=== PATIENT | male | born 1980 | race American Indian/Alaskan Native ===

== ENCOUNTER 2018-08-14 06:07 | Emergency (ER) | payer SELFPAY ==
[2018-08-14] MEDS ORDERED: Aspirin 81 MG Tab.Chew PO ONE (06:22)
[2018-08-14] MEDS ORDERED: Nitroglycerin 2% Oint 1 GM UD Packet TOP ONE (06:22)
[2018-08-14] MEDS ORDERED: Sodium Chloride 0.9% 2.5 ML Syringe FLUSH PRN (06:23)
[2018-08-14] MEDS ORDERED: Sodium Chloride 0.9% 10 ML Syringe FLUSH PRN (06:23)
--- NOTE | 2018-08-14 06:28 | EDM.PDOC ---
<Leslie Thapa - Last Filed: 08/14/18 07:04> ED HPI GENERAL MEDICAL PROBLEM - General Chief Complaint: Respiratory Problem Stated Complaint: SHORTNESS OF BREATH Time Seen by Provider: 08/14/18 06:18 - History of Present Illness INITIAL COMMENTS - FREE TEXT/NARRATIVE: HISTORY AND PHYSICAL: History of present illness: The patient is a 38-year-old male who presents with several weeks of an on again off again cough sometimes spastic and sometimes productive of phlegm and new shortness of breath over the last 1 week. He says that he does not have chest pain specifically but sometimes he feels like the cough and the shortness of breath or choking him and there is a pressure-like sensation with the shortness of breath. He's not had fevers chills and only recently has had some epigastric discomfort without vomiting or diarrhea. The patient does not have a local provider but says that in 2016 he had fluid in his lungs and was treated with 2 different antihypertensives and to diuretics and saw Dr. Snider in [place] as well as Dr. Gotti the pathology secretary. He says that at this time he had kidney trouble and had a follow with the pathology secretary and he did follow-up with Dr. Snider and he started having more hypotension and he was taken off of his blood pressure medications as well as his diuretics and he says he has not been very compliant with follow-ups since that time. When I asked him if he had an echocardiogram he says yes but he does not know the results and he is not sure why he had the heart failure and then subsequently was taken off all medications. On this ED visit he says he has not had any leg pain or swelling he has been eating and drinking normally and he has not had any fevers or chills. The patient says he does sleep on 2 pillows but sometimes has trouble and has to sit upright to sleep. The patient says that when he is at work and doing activities he feels more short of breath and this is new over the last 1 week as well. He came in this morning versus any other day because he felt like his symptoms would worsen at work today. Review of systems: As per history of present illness and below otherwise all systems reviewed and negative. Past medical history: As per history of present illness and as reviewed below otherwise noncontributory. Surgical history: As per history of present illness and as reviewed below otherwise noncontributory. Social history: No reported history of drug or alcohol abuse. Family history: As per history of present illness and as reviewed below otherwise noncontributory. Physical exam: General: Well-developed well-nourished man who is nontoxic and not breathless on my evaluation but seems a little anxious. He is tachycardic and other vitals are noted by me as well HEENT: Atraumatic, normocephalic, pupils reactive, negative for conjunctival pallor or scleral icterus, mucous membranes moist, throat clear, neck supple, nontender, trachea midline. Lungs: Clear to auscultation diminished breath sounds in the bases more on the left side but no stridor or wheezing and no abdominal work of breathing, breath sounds equal bilaterally, chest nontender. Heart: S1S2, regular rhythm and tachycardic rate of my evaluation but no overt murmurs. There is no evidence of JVD on my evaluation and when I laid the patient in the supine position he was not dyspneic Abdomen: Soft, nondistended, nontender. Negative for masses or hepatosplenomegaly. Negative for costovertebral tenderness. Pelvis: Stable nontender. Genitourinary: Deferred. Rectal: Deferred. Extremities: Atraumatic, negative for cords or calf pain. Neurovascular unremarkable. No pedal edema or leg asymmetry Neuro: Awake, alert, oriented. Cranial nerves II through XII unremarkable. Cerebellum unremarkable. Motor and sensory unremarkable throughout. Exam nonfocal. Diagnostics: EKG CBC CMP INR BNP troponin lipase UA chest x-ray Therapeutics: IV O2 monitor aspirin Nitropaste 7a: Case was endorsed to Dr. Ernst to follow-up testing results and disposition patient. Patient is currently stable here in the ED. Impression: Dyspnea acute on chronic Definitive disposition and diagnosis as appropriate pending reevaluation and review of above. epigastric Pain Score (Numeric/FACES): 9 - Related Data Allergies Allergy/AdvReac Type Severity Reaction Status Date / Time No Known Allergies Allergy Verified 08/14/18 06:16 Home Meds: Home Meds Furosemide [Lasix] 20 mg PO BID #20 tab 08/14/18 [Rx] Potassium Chloride [Klor-Con 10] 10 meq PO DAILY #20 tab.er 08/14/18 [Rx] Social & Family History - Tobacco Use Smoking Status *Q: Current Every Day Smoker Years of Tobacco use: 19 Packs/Tins Daily: 1 - Recreational Drug Use Recreational Drug Use: Yes Drug Use in Last 12 Months: Yes Recreational Drug Type: Reports: Marijuana/Hashish Recreational Drug Use Frequency: Socially ED ROS GENERAL - Review of Systems Review Of Systems: ROS reveals no pertinent complaints other than HPI. ED EXAM, GENERAL - Physical Exam Exam: See Below (See dictation) Course - Vital Signs Last Recorded V/S: Last Vital Signs Temp 96.7 F 08/14/18 06:07 Pulse 103 H 08/14/18 07:06 Resp 20 08/14/18 07:06 BP 110/81 08/14/18 07:06 Pulse Ox 100 08/14/18 07:06 - Orders/Labs/Meds Orders: Active Orders 24 hr Category Date Time Status Cardiac Monitoring [RC] . DIRECTED Care 08/14/18 06:09 Active EKG Documentation Completion [RC] STAT Care 08/14/18 06:09 Active Oxygen Therapy, ED [RC] ASDIRECTED Care 08/14/18 06:09 Active Pulse Oximetry [RC] ASDIRECTED Care 08/14/18 06:09 Active UA RFX GAMALIEL AND CULT IF INDIC [URIN] Stat Lab 08/14/18 06:23 Ordered Sodium Chloride 0.9% [Saline Flush] Med 08/14/18 06:23 Active 10 ml FLUSH ASDIRECTED PRN Sodium Chloride 0.9% [Saline Flush] Med 08/14/18 06:23 Active 2.5 ml FLUSH ASDIRECTED PRN Saline Lock Insert [OM.PC] Stat Oth 08/14/18 06:22 Ordered Medication Orders Sodium Chloride (Saline Flush) 10 ml FLUSH ASDIRECTED PRN PRN Reason: Keep Vein Open Sodium Chloride (Saline Flush) 2.5 ml FLUSH ASDIRECTED PRN PRN Reason: Keep Vein Open Labs: Laboratory Tests 08/14/18 08/14/18 08/14/18 Range/Units 06:20 06:20 06:20 WBC 11.28 H (4.0-11.0) K/uL RBC 4.53 (4.50-5.90) M/uL Hgb 13.5 (13.0-17.0) g/dL Hct 41.1 (38.0-50.0) % MCV 90.7 (80.0-98.0) fL MCH 29.8 (27.0-32.0) pg MCHC 32.8 (31.0-37.0) g/dL RDW Std Deviation 44.9 (28.0-62.0) fl RDW Coeff of Pauline 14 (11.0-15.0) % Plt Count 321 (150-400) K/uL MPV 9.20 (7.40-12.00) fL Neut % (Auto) 56.4 (48.0-80.0) % Lymph % (Auto) 34.5 (16.0-40.0) % [place] % (Auto) 8.2 (0.0-15.0) % Eos % (Auto) 0.5 (0.0-7.0) % Baso % (Auto) 0.4 (0.0-1.5) % Neut # (Auto) 6.4 H (1.4-5.7) K/uL Lymph # (Auto) 3.9 H (0.6-2.4) K/uL [place] # (Auto) 0.9 H (0.0-0.8) K/uL Eos # (Auto) 0.1 (0.0-0.7) K/uL Baso # (Auto) 0.0 (0.0-0.1) K/uL Nucleated RBC % 0.0 /100WBC Nucleated RBCs # 0 K/uL INR 1.17 Sodium 139 (136-148) mmol/L Potassium 4.6 (3.5-5.1) mmol/L Chloride 107 (98-107) mmol/L Carbon Dioxide 22.2 (21.0-32.0) mmol/L BUN 21 H (7.0-18.0) mg/dL Creatinine 1.2 (0.8-1.3) mg/dL Est Cr Clr Drug Dosing 85.34 mL/min Estimated GFR (MDRD) > 60.0 ml/min Glucose 125 H (74-106) mg/dL Calcium 8.3 L (8.5-10.1) mg/dL Total Bilirubin 0.9 (0.2-1.0) mg/dL AST 35 (15-37) IU/L ALT 50 (14-63) IU/L Alkaline Phosphatase 110 (46-116) U/L Troponin I < 0.050 (0.000-0.056) ng/mL B-Natriuretic Peptide (<100) PG/ML Total Protein 6.9 (6.4-8.2) g/dL Albumin 3.5 (3.4-5.0) g/dL Globulin 3.4 (2.6-4.0) g/dL Albumin/Globulin Ratio 1.0 (0.9-1.6) Lipase 85 (73-393) U/L 08/14/18 Range/Units 06:20 WBC (4.0-11.0) K/uL RBC (4.50-5.90) M/uL Hgb (13.0-17.0) g/dL Hct (38.0-50.0) % MCV (80.0-98.0) fL MCH (27.0-32.0) pg MCHC (31.0-37.0) g/dL RDW Std Deviation (28.0-62.0) fl RDW Coeff of Pauline (11.0-15.0) % Plt Count (150-400) K/uL MPV (7.40-12.00) fL Neut % (Auto) (48.0-80.0) % Lymph % (Auto) (16.0-40.0) % [place] % (Auto) (0.0-15.0) % Eos % (Auto) (0.0-7.0) % Baso % (Auto) (0.0-1.5) % Neut # (Auto) (1.4-5.7) K/uL Lymph # (Auto) (0.6-2.4) K/uL [place] # (Auto) (0.0-0.8) K/uL Eos # (Auto) (0.0-0.7) K/uL Baso # (Auto) (0.0-0.1) K/uL Nucleated RBC % /100WBC Nucleated RBCs # K/uL INR Sodium (136-148) mmol/L Potassium (3.5-5.1) mmol/L Chloride (98-107) mmol/L Carbon Dioxide (21.0-32.0) mmol/L BUN (7.0-18.0) mg/dL Creatinine (0.8-1.3) mg/dL Est Cr Clr Drug Dosing mL/min Estimated GFR (MDRD) ml/min Glucose (74-106) mg/dL Calcium (8.5-10.1) mg/dL Total Bilirubin (0.2-1.0) mg/dL AST (15-37) IU/L ALT (14-63) IU/L Alkaline Phosphatase (46-116) U/L Troponin I (0.000-0.056) ng/mL B-Natriuretic Peptide 879 H (<100) PG/ML Total Protein (6.4-8.2) g/dL Albumin (3.4-5.0) g/dL Globulin (2.6-4.0) g/dL Albumin/Globulin Ratio (0.9-1.6) Lipase (73-393) U/L Meds: Medications Generic Name Dose Route Start Last Admin Trade Name Freq PRN Reason Stop Dose Admin Sodium Chloride 10 ml 08/14/18 06:23 Saline Flush FLUSH ASDIRECTED PRN Keep Vein Open Sodium Chloride 2.5 ml 08/14/18 06:23 Saline Flush FLUSH ASDIRECTED PRN Keep Vein Open Discontinued Medications Generic Name Dose Route Start Last Admin Trade Name Freq PRN Reason Stop Dose Admin Aspirin 324 mg 08/14/18 06:22 08/14/18 06:44 Aspirin PO 08/14/18 06:23 324 mg ONETIME ONE Administration Nitroglycerin 0.5 gm 08/14/18 06:22 08/14/18 06:47 Nitro-Bid 2% TOP 08/14/18 06:23 0.5 gm ONETIME ONE Administration Departure - Departure Disposition: Home, Self-Care 01 Clinical Impression: CHF (congestive heart failure) Qualifiers: Heart failure type: other Qualified Code(s): I50.9 - Heart failure, unspecified - Discharge Information Prescriptions: Furosemide [Lasix] 20 mg PO BID #20 tab Potassium Chloride [Klor-Con 10] 10 meq PO DAILY #20 tab.er Forms: ED Department Discharge Additional Instructions: The following information is given to patients seen in the emergency department who are being discharged to home. This information is to outline your options for follow-up care. We provide all patients seen in our emergency department with a follow-up referral. The need for follow-up, as well as the timing and circumstances, are variable depending upon the specifics of your emergency department visit. If you don't have a primary care physician on staff, we will provide you with a referral. We always advise you to contact your personal physician following an emergency department visit to inform them of the circumstance of the visit and for follow-up with them and/or the need for any referrals to a consulting specialist. The emergency department will also refer you to a specialist when appropriate. This referral assures that you have the opportunity for follow-up care with a specialist. All of these measure are taken in an effort to provide you with optimal care, which includes your follow-up. Under all circumstances we always encourage you to contact your private physician who remains a resource for coordinating your care. When calling for follow-up care, please make the office aware that this follow-up is from your recent emergency room visit. If for any reason you are refused follow-up, please contact the [facility] Emergency Department at and asked to speak to the emergency department charge nurse. Take meds as directed, follow up with your primary care physician, return to ER if symptoms worsen or change. [facility] [address] [place] [address] <Narcisa Ernst - Last Filed: 08/14/18 07:43> Departure - Departure Time of Disposition: 07:42 Condition: Good - Discharge Information *PRESCRIPTION DRUG MONITORING PROGRAM REVIEWED*: No *COPY OF PRESCRIPTION DRUG MONITORING REPORT IN PATIENT LILI: No
--- NOTE | 2018-08-14 06:53 | CR ---
INDICATION: Chest pain TECHNIQUE: Chest 1 view COMPARISON: None FINDINGS: Cardiovascular and mediastinum: Mild cardiomegaly with normal pulmonary vasculature. Lungs and pleural spaces: Lungs are clear. No sign of infiltrate or mass. No sign of pleural effusion. No pneumothorax. Bones and soft tissues: No significant findings. IMPRESSION: Mild cardiomegaly without acute pulmonary consolidation. Dictated by Theo Winn MD @ Aug 14 2018 6:50AM Signed by Dr. Theo Winn @ Aug 14 2018 6:51AM
[2018-08-14 06:58] LABS: CHLORIDE,CL 107 mmol/L (98-107); SODIUM,NA 139 mmol/L (136-148)
== END 2018-08-14 07:45 | disposition home or self-care (01) ==
LOC: MW.ED 06:07
DX: I50.9 Heart failure, unspecified (principal); F17.210 Nicotine dependence, cigarettes, uncomplicated; Z79.899 Other long term (current) drug therapy
CPT/HCPCS: 71045; 80053; 83690; 83880; 84484; 85025; 85610; 93005; 99285; A9270

== ENCOUNTER 2018-08-24 20:56 | Observation (INO) | payer OTHER ==
[2018-08-24] MEDS ORDERED: Sodium Chloride 0.9% 10 ML Syringe FLUSH PRN (21:07)
[2018-08-24] MEDS: Sodium Chloride 0.9% 2.5 ML Syringe FLUSH PRN (21:22)
--- NOTE | 2018-08-24 21:24 | EDM.PDOC ---
<Haven Mac R - Last Filed: 08/24/18 22:01> ED HPI GENERAL MEDICAL PROBLEM - General Chief Complaint: Cardiovascular Problem Stated Complaint: TROUBLE BREATHING Time Seen by Provider: 08/24/18 21:05 Source of Information: Reports: Patient History Limitations: Reports: No Limitations - History of Present Illness INITIAL COMMENTS - FREE TEXT/NARRATIVE: Reporting that he has noticed increased shortness of breath particularly with activity and almost choking sensation in his throat and sweating. He has a history of CHF. He was seen here a couple weeks ago was given a dose of Lasix and sent home--he has not followed up. He also noted that he has not been "Peeing much". Denies any fever, chest pain, abdominal pain, itchy skin or swelling in his lower legs ankles or feet. He reports he must sleep either on his right side or sitting up. He states that he checks his blood pressure regularly at home and it has been running in the 120s systolic and between 80 and the mid 90s diastolic. He has family history of CHF. He also was a regular methamphetamine user for many years. He states that he quit a couple of years ago. He has seen Dr. Snider in cardiology and doctor Goncalves in nephrology in the past. He states he had been on some different medications but then was taken off of all of his medications. no pain Pain Score (Numeric/FACES): 0 - Related Data Allergies Allergy/AdvReac Type Severity Reaction Status Date / Time No Known Allergies Allergy Verified 08/24/18 21:00 Home Meds: Home Meds Furosemide [Lasix] 20 mg PO BID #20 tab 08/14/18 [Rx] Potassium Chloride [Klor-Con 10] 10 meq PO DAILY #20 tab.er 08/14/18 [Rx] Past Medical History HEENT History: Reports: None Cardiovascular History: Reports: Heart Failure Respiratory History: Reports: None Gastrointestinal History: Reports: None Genitourinary History: Reports: None Musculoskeletal History: Reports: None Neurological History: Reports: None Psychiatric History: Reports: None Endocrine/Metabolic History: Reports: None Hematologic History: Reports: None Oncologic (Cancer) History: Reports: None Dermatologic History: Reports: None - Infectious Disease History Infectious Disease History: Reports: Chicken Pox Social & Family History - Family History Family Medical History: Noncontributory - Tobacco Use Smoking Status *Q: Former Smoker Used Tobacco, but Quit: Yes Month/Year Tobacco Last Used: 2017 - Caffeine Use Caffeine Use: Reports: Energy Drinks, Soda - Recreational Drug Use Recreational Drug Use: Yes Recreational Drug Type: Reports: Marijuana/Hashish ED ROS GENERAL - Review of Systems Review Of Systems: ROS reveals no pertinent complaints other than HPI. ED EXAM, GENERAL - Physical Exam Exam: See Below Exam Limited By: No Limitations General Appearance: Alert, Mild Distress (Due to shortness of breath) Ears: Normal External Exam Nose: Normal Inspection Throat/Mouth: Normal Inspection Head: Atraumatic, Normocephalic Neck: Normal Inspection Respiratory/Chest: Lungs Clear, Normal Breath Sounds, Other (Tachypnea, mild increased work of breathing) Cardiovascular: Normal Peripheral Pulses, Regular Rate, Rhythm, No Edema, No Murmur GI/Abdominal: Soft, No Distention Back Exam: Normal Inspection Extremities: Normal Inspection Neurological: Alert, Oriented, No Motor/Sensory Deficits Psychiatric: Normal Affect, Normal Mood Skin Exam: Warm, Dry, Intact, Normal Color, No Rash Lymphatic: No Adenopathy Course - Vital Signs Last Recorded V/S: Last Vital Signs Temp 35.6 C 08/24/18 21:00 Pulse 109 H 08/24/18 22:59 Resp 20 08/24/18 22:59 BP 117/59 L 08/24/18 22:59 Pulse Ox 97 08/24/18 22:59 - Orders/Labs/Meds Orders: Active Orders 24 hr Category Date Time Status Patient Status [ADT] Stat ADT 08/24/18 23:08 Active Cardiac Monitoring [RC] . DIRECTED Care 08/24/18 21:07 Active EKG Documentation Completion [RC] STAT Care 08/24/18 21:07 Active Oxygen Therapy, ED [RC] ASDIRECTED Care 08/24/18 21:07 Active Sodium Chloride 0.9% [Saline Flush] Med 08/24/18 21:07 Active 10 ml FLUSH ASDIRECTED PRN Sodium Chloride 0.9% [Saline Flush] Med 08/24/18 21:07 Active 2.5 ml FLUSH ASDIRECTED PRN Saline Lock Insert [OM.PC] Stat Oth 08/24/18 21:07 Ordered Medication Orders Sodium Chloride (Saline Flush) 10 ml FLUSH ASDIRECTED PRN PRN Reason: Keep Vein Open Last Admin: 08/24/18 21:22 Dose: 10 ml Sodium Chloride (Saline Flush) 2.5 ml FLUSH ASDIRECTED PRN PRN Reason: Keep Vein Open Last Admin: 08/24/18 21:22 Dose: 2.5 ml Labs: Laboratory Tests 08/24/18 08/24/18 08/24/18 Range/Units 21:08 21:08 21:08 WBC 10.74 (4.0-11.0) K/uL RBC 4.76 (4.50-5.90) M/uL Hgb 14.1 (13.0-17.0) g/dL Hct 43.5 (38.0-50.0) % MCV 91.4 (80.0-98.0) fL MCH 29.6 (27.0-32.0) pg MCHC 32.4 (31.0-37.0) g/dL RDW Std Deviation 48.2 (28.0-62.0) fl RDW Coeff of Pauline 15 (11.0-15.0) % Plt Count 377 (150-400) K/uL MPV 9.30 (7.40-12.00) fL Neut % (Auto) 60.4 (48.0-80.0) % Lymph % (Auto) 31.7 (16.0-40.0) % [place] % (Auto) 6.2 (0.0-15.0) % Eos % (Auto) 1.0 (0.0-7.0) % Baso % (Auto) 0.7 (0.0-1.5) % Neut # (Auto) 6.5 H (1.4-5.7) K/uL Lymph # (Auto) 3.4 H (0.6-2.4) K/uL [place] # (Auto) 0.7 (0.0-0.8) K/uL Eos # (Auto) 0.1 (0.0-0.7) K/uL Baso # (Auto) 0.1 (0.0-0.1) K/uL Nucleated RBC % 0.0 /100WBC Nucleated RBCs # 0 K/uL INR 1.10 Sodium 137 (136-148) mmol/L Potassium 4.4 (3.5-5.1) mmol/L Chloride 104 (98-107) mmol/L Carbon Dioxide 24.3 (21.0-32.0) mmol/L BUN 22 H (7.0-18.0) mg/dL Creatinine 1.2 (0.8-1.3) mg/dL Est Cr Clr Drug Dosing 85.34 mL/min Estimated GFR (MDRD) > 60.0 ml/min Glucose 94 (74-106) mg/dL Calcium 8.4 L (8.5-10.1) mg/dL Total Bilirubin 1.0 (0.2-1.0) mg/dL AST 27 (15-37) IU/L ALT 39 (14-63) IU/L Alkaline Phosphatase 111 (46-116) U/L Troponin I < 0.050 (0.000-0.056) ng/mL B-Natriuretic Peptide (<100) PG/ML Total Protein 6.8 (6.4-8.2) g/dL Albumin 3.3 L (3.4-5.0) g/dL Globulin 3.5 (2.6-4.0) g/dL Albumin/Globulin Ratio 0.9 (0.9-1.6) 08/24/18 Range/Units 21:08 WBC (4.0-11.0) K/uL RBC (4.50-5.90) M/uL Hgb (13.0-17.0) g/dL Hct (38.0-50.0) % MCV (80.0-98.0) fL MCH (27.0-32.0) pg MCHC (31.0-37.0) g/dL RDW Std Deviation (28.0-62.0) fl RDW Coeff of Pauline (11.0-15.0) % Plt Count (150-400) K/uL MPV (7.40-12.00) fL Neut % (Auto) (48.0-80.0) % Lymph % (Auto) (16.0-40.0) % [place] % (Auto) (0.0-15.0) % Eos % (Auto) (0.0-7.0) % Baso % (Auto) (0.0-1.5) % Neut # (Auto) (1.4-5.7) K/uL Lymph # (Auto) (0.6-2.4) K/uL [place] # (Auto) (0.0-0.8) K/uL Eos # (Auto) (0.0-0.7) K/uL Baso # (Auto) (0.0-0.1) K/uL Nucleated RBC % /100WBC Nucleated RBCs # K/uL INR Sodium (136-148) mmol/L Potassium (3.5-5.1) mmol/L Chloride (98-107) mmol/L Carbon Dioxide (21.0-32.0) mmol/L BUN (7.0-18.0) mg/dL Creatinine (0.8-1.3) mg/dL Est Cr Clr Drug Dosing mL/min Estimated GFR (MDRD) ml/min Glucose (74-106) mg/dL Calcium (8.5-10.1) mg/dL Total Bilirubin (0.2-1.0) mg/dL AST (15-37) IU/L ALT (14-63) IU/L Alkaline Phosphatase (46-116) U/L Troponin I (0.000-0.056) ng/mL B-Natriuretic Peptide 889 H (<100) PG/ML Total Protein (6.4-8.2) g/dL Albumin (3.4-5.0) g/dL Globulin (2.6-4.0) g/dL Albumin/Globulin Ratio (0.9-1.6) Meds: Medications Generic Name Dose Route Start Last Admin Trade Name Freq PRN Reason Stop Dose Admin Sodium Chloride 10 ml 08/24/18 21:07 08/24/18 21:22 Saline Flush FLUSH 10 ml ASDIRECTED PRN Administration Keep Vein Open Sodium Chloride 2.5 ml 08/24/18 21:07 08/24/18 21:22 Saline Flush FLUSH 2.5 ml ASDIRECTED PRN Administration Keep Vein Open Discontinued Medications Generic Name Dose Route Start Last Admin Trade Name Freq PRN Reason Stop Dose Admin Furosemide 20 mg 08/24/18 23:06 Lasix IVPUSH 08/24/18 23:07 NOW ONE Departure - Departure Disposition: Refer to Observation Clinical Impression: CHF (congestive heart failure) Qualifiers: Heart failure type: other Qualified Code(s): I50.9 - Heart failure, unspecified Forms: ED Department Discharge - My Orders Last 24 Hours: My Active Orders 08/24/18 21:07 Cardiac Monitoring [RC] . DIRECTED EKG Documentation Completion [RC] STAT Oxygen Therapy, ED [RC] ASDIRECTED Sodium Chloride 0.9% [Saline Flush] 10 ml FLUSH ASDIRECTED PRN Sodium Chloride 0.9% [Saline Flush] 2.5 ml FLUSH ASDIRECTED PRN Saline Lock Insert [OM.PC] Stat 08/24/18 23:08 Patient Status [ADT] Stat - Assessment/Plan Last 24 Hours: My Active Orders 08/24/18 21:07 Cardiac Monitoring [RC] . DIRECTED EKG Documentation Completion [RC] STAT Oxygen Therapy, ED [RC] ASDIRECTED Sodium Chloride 0.9% [Saline Flush] 10 ml FLUSH ASDIRECTED PRN Sodium Chloride 0.9% [Saline Flush] 2.5 ml FLUSH ASDIRECTED PRN Saline Lock Insert [OM.PC] Stat 08/24/18 23:08 Patient Status [ADT] Stat <Kenneth Quiñonez - Last Filed: 08/24/18 23:11> Course - Vital Signs Text/Narrative:: Emergency department course is been unremarkable patient was given Lasix 20 mg IV I discussed case with hospitalist who graciously accepted the patient is admission for observation impression #1 congestive heart failure #2 medical noncompliance Departure - Departure Time of Disposition: 23:10 Condition: Good
[2018-08-24 21:43] LABS: CHLORIDE,CL 104 mmol/L (98-107); SODIUM,NA 137 mmol/L (136-148)
--- NOTE | 2018-08-24 21:46 | CR ---
INDICATION: Shortness of breath/CHF. TECHNIQUE: Single-view chest. COMPARISON: 08/14/2018. FINDINGS: Heart size appears prominent and stable. Lungs are free of infiltrate. No findings to suggest pulmonary edema. IMPRESSION: No significant infiltrate or pulmonary edema is seen. Dictated by Ilir Hilario MD @ 08/24/2018 9:44:49 PM Dictated by: Ilir Hilario MD @ 08/24/2018 21:45:09 (Electronically Signed)
[2018-08-24] MEDS ORDERED: Furosemide 40 MG/4 ML VIAL IVPUSH ONE (23:06)
[2018-08-25] MEDS ORDERED: Acetaminophen 325 MG Tab PO PRN (00:14)
[2018-08-25] MEDS ORDERED: oxyCODONE 5 MG Tab PO PRN (00:15)
[2018-08-25] MEDS ORDERED: Sodium Chloride 0.9% 2.5 ML Syringe FLUSH PRN (00:16)
[2018-08-25] MEDS ORDERED: Sodium Chloride 0.9% 10 ML Syringe FLUSH PRN (00:16)
[2018-08-25 06:05] LABS: CHLORIDE,CL 102 mmol/L (98-107); SODIUM,NA 136 mmol/L (136-148)
[2018-08-25] MEDS ORDERED: Furosemide 20 MG Tab PO SCH (08:00)
[2018-08-25] MEDS: Enoxaparin 30 MG/0.3 ML Syringe SUBCUT SCH (08:14)
[2018-08-25] MEDS ORDERED: Furosemide 20 MG/2 ML VIAL IVPUSH SCH ×2 (08:30→09:00)
[2018-08-25] MEDS: Potassium Chloride 10 MEQ Tab.ER PO SCH (09:16)
--- NOTE | 2018-08-25 10:03 | PCM.HP ---
<Jose uLis Chi - Last Filed: 08/25/18 10:10> H&P History of Present Illness - General Date of Service: 08/25/18 Admit Problem/Dx: Admission Diagnosis/Problem Admission Diagnosis/Problem Congestive heart failure - History of Present Illness Initial Comments - Free Text/Narative: 38 y/o male with history of HF and previous methamphetamine use. Had been seeing Dr. Snider, Cardiology, however, states that last time he saw him he was instructed to stop his medications. Patient states that for the past 1 week he has been feeling more short of breath and coughing. Worse when laying down. He uses two pillows at night. Has not been taking any medications. Denies chest pain, radiation to left arm or neck. Feeling more weak than usual. No nausea, vomiting. No abdominal pain, dysuria, diarrhea, blood in stool. Denies worsening lower extremity swelling. In the ER, he was found to be tachycardic, tachypneic with O2 sat of low 90's on RA. He was diuresed with lasix overnight. He still feels short of breath but improved. Troponin was negative. BNP of 800. Pending Echo results. no pain Pain Score (Numeric/FACES): 0 - Related Data Allergies/Adverse Reactions: Allergies Allergy/AdvReac Type Severity Reaction Status Date / Time No Known Allergies Allergy Verified 08/25/18 09:23 Home Medications: Home Meds Furosemide [Lasix] 20 mg PO BID #20 tab 08/14/18 [Rx] Potassium Chloride [Klor-Con 10] 10 meq PO DAILY #20 tab.er 08/14/18 [Rx] Past Medical History HEENT History: Reports: None Cardiovascular History: Reports: Heart Failure Respiratory History: Reports: None Gastrointestinal History: Reports: None Genitourinary History: Reports: None Musculoskeletal History: Reports: None Neurological History: Reports: None Psychiatric History: Reports: None Endocrine/Metabolic History: Reports: None Hematologic History: Reports: None Oncologic (Cancer) History: Reports: None Dermatologic History: Reports: None - Infectious Disease History Infectious Disease History: Reports: Chicken Pox - Past Surgical History Cardiovascular Surgical History: Reports: None Social & Family History - Family History Family Medical History: Noncontributory - Tobacco Use Smoking Status *Q: Former Smoker Used Tobacco, but Quit: Yes Month/Year Tobacco Last Used: 2 months ago Second Hand Smoke Exposure: Yes - Caffeine Use Caffeine Use: Reports: Energy Drinks - Recreational Drug Use Recreational Drug Use: Yes Drug Use in Last 12 Months: Yes Recreational Drug Type: Reports: Marijuana/Hashish Recreational Drug Use Frequency: Weekly H&P Review of Systems - Review of Systems: Review Of Systems: ROS reveals no pertinent complaints other than HPI. Exam - Exam Exam: See Below - Vital Signs Vital Signs: Last Vital Signs Temp 36.6 C 08/25/18 04:19 Pulse 90 08/25/18 04:19 Resp 18 08/25/18 04:19 BP 105/64 08/25/18 04:19 Pulse Ox 93 L 08/25/18 04:19 Weight: 103.464 kg - Exam General: Alert, Oriented, Cooperative HEENT: Conjunctiva Clear, Mucosa Moist & [place] Lungs: Clear to Auscultation, Normal Respiratory Effort. No: Crackles, Wheezing Cardiovascular: Regular Rate, Regular Rhythm GI/Abdominal Exam: Normal Bowel Sounds, Soft, Non-Tender Extremities: Normal Inspection, No Pedal Edema Skin: Warm, Dry - Patient Data Lab Results Last 24 hrs: Laboratory Results - last 24 hr 08/24/18 08/24/18 08/24/18 Range/Units 21:08 21:08 21:08 WBC 10.74 (4.0-11.0) K/uL RBC 4.76 (4.50-5.90) M/uL Hgb 14.1 (13.0-17.0) g/dL Hct 43.5 (38.0-50.0) % MCV 91.4 (80.0-98.0) fL MCH 29.6 (27.0-32.0) pg MCHC 32.4 (31.0-37.0) g/dL RDW Std Deviation 48.2 (28.0-62.0) fl RDW Coeff of Pauline 15 (11.0-15.0) % Plt Count 377 (150-400) K/uL MPV 9.30 (7.40-12.00) fL Neut % (Auto) 60.4 (48.0-80.0) % Lymph % (Auto) 31.7 (16.0-40.0) % [place] % (Auto) 6.2 (0.0-15.0) % Eos % (Auto) 1.0 (0.0-7.0) % Baso % (Auto) 0.7 (0.0-1.5) % Neut # (Auto) 6.5 H (1.4-5.7) K/uL Lymph # (Auto) 3.4 H (0.6-2.4) K/uL [place] # (Auto) 0.7 (0.0-0.8) K/uL Eos # (Auto) 0.1 (0.0-0.7) K/uL Baso # (Auto) 0.1 (0.0-0.1) K/uL Nucleated RBC % 0.0 /100WBC Nucleated RBCs # 0 K/uL INR 1.10 Sodium 137 (136-148) mmol/L Potassium 4.4 (3.5-5.1) mmol/L Chloride 104 (98-107) mmol/L Carbon Dioxide 24.3 (21.0-32.0) mmol/L BUN 22 H (7.0-18.0) mg/dL Creatinine 1.2 (0.8-1.3) mg/dL Est Cr Clr Drug Dosing 85.34 mL/min Estimated GFR (MDRD) > 60.0 ml/min Glucose 94 (74-106) mg/dL Calcium 8.4 L (8.5-10.1) mg/dL Total Bilirubin 1.0 (0.2-1.0) mg/dL AST 27 (15-37) IU/L ALT 39 (14-63) IU/L Alkaline Phosphatase 111 (46-116) U/L Troponin I < 0.050 (0.000-0.056) ng/mL B-Natriuretic Peptide (<100) PG/ML Total Protein 6.8 (6.4-8.2) g/dL Albumin 3.3 L (3.4-5.0) g/dL Globulin 3.5 (2.6-4.0) g/dL Albumin/Globulin Ratio 0.9 (0.9-1.6) 08/24/18 08/25/18 08/25/18 Range/Units 21:08 04:48 04:48 WBC 9.22 (4.0-11.0) K/uL RBC 4.61 (4.50-5.90) M/uL Hgb 13.6 (13.0-17.0) g/dL Hct 41.5 (38.0-50.0) % MCV 90.0 (80.0-98.0) fL MCH 29.5 (27.0-32.0) pg MCHC 32.8 (31.0-37.0) g/dL RDW Std Deviation 47.3 (28.0-62.0) fl RDW Coeff of Pauline 15 (11.0-15.0) % Plt Count 368 (150-400) K/uL MPV 9.50 (7.40-12.00) fL Neut % (Auto) 57.2 (48.0-80.0) % Lymph % (Auto) 35.2 (16.0-40.0) % [place] % (Auto) 6.0 (0.0-15.0) % Eos % (Auto) 0.8 (0.0-7.0) % Baso % (Auto) 0.8 (0.0-1.5) % Neut # (Auto) 5.3 (1.4-5.7) K/uL Lymph # (Auto) 3.3 H (0.6-2.4) K/uL [place] # (Auto) 0.6 (0.0-0.8) K/uL Eos # (Auto) 0.1 (0.0-0.7) K/uL Baso # (Auto) 0.1 (0.0-0.1) K/uL Nucleated RBC % 0.0 /100WBC Nucleated RBCs # 0 K/uL INR Sodium 136 (136-148) mmol/L Potassium 3.8 (3.5-5.1) mmol/L Chloride 102 (98-107) mmol/L Carbon Dioxide 21.5 (21.0-32.0) mmol/L BUN 23 H (7.0-18.0) mg/dL Creatinine 1.1 (0.8-1.3) mg/dL Est Cr Clr Drug Dosing 93.09 mL/min Estimated GFR (MDRD) > 60.0 ml/min Glucose 99 (74-106) mg/dL Calcium 8.4 L (8.5-10.1) mg/dL Total Bilirubin (0.2-1.0) mg/dL AST (15-37) IU/L ALT (14-63) IU/L Alkaline Phosphatase (46-116) U/L Troponin I (0.000-0.056) ng/mL B-Natriuretic Peptide 889 H (<100) PG/ML Total Protein (6.4-8.2) g/dL Albumin (3.4-5.0) g/dL Globulin (2.6-4.0) g/dL Albumin/Globulin Ratio (0.9-1.6) Result Diagrams: 08/25/18 04:48 08/25/18 04:48 Problem List Initiated/Reviewed/Updated: Yes Orders Last 24hrs: Active Orders 24 hr Category Date Time Status Patient Status [ADT] Stat ADT 08/24/18 23:08 Active Cardiac Monitoring [RC] CONTINUOUS Care 08/25/18 07:01 Active Daily Weight [Height and Weight] [RC] DAILY Care 08/25/18 08:16 Active Intake and Output Strict [RC] ASDIRECTED Care 08/25/18 08:16 Active Oxygen Therapy [RC] PRN Care 08/25/18 07:00 Active Telemetry Monitoring [Cardiac Monitoring] [RC] Q8H Care 08/25/18 00:17 Active Up ad Emily [RC] ASDIRECTED Care 08/25/18 07:00 Active VTE/DVT Education [RC] PER UNIT ROUTINE Care 08/25/18 07:00 Active Vital Signs [RC] Q4H Care 08/25/18 07:00 Active Fluid Restriction [DIET] Diet 08/25/18 Breakfast Active Regular Diet [DIET] Diet 08/25/18 Breakfast Active Echo Comp wo Cont [US] Routine Exams 08/25/18 07:02 Taken CBC WITH AUTO DIFF [HEME] AM Lab 08/26/18 05:11 Ordered COMPREHENSIVE METABOLIC PN,CMP [CHEM] AM Lab 08/26/18 05:11 Ordered DRUG SCREEN, URINE [URCHEM] Routine Lab 08/25/18 08:21 Ordered Acetaminophen [Tylenol] Med 08/25/18 00:14 Active 650 mg PO Q6H PRN Enoxaparin [Lovenox] Med 08/25/18 07:00 Active 30 mg SUBCUT Q24H Furosemide [Lasix] Med 08/25/18 08:30 Active 20 mg IVPUSH Q6H Potassium Chloride [Klor-Con 10] Med 08/25/18 09:00 Active 10 meq PO DAILY Sodium Chloride 0.9% [Saline Flush] Med 08/24/18 21:07 Active 10 ml FLUSH ASDIRECTED PRN Sodium Chloride 0.9% [Saline Flush] Med 08/25/18 00:16 Active 10 ml FLUSH ASDIRECTED PRN Sodium Chloride 0.9% [Saline Flush] Med 08/24/18 21:07 Active 2.5 ml FLUSH ASDIRECTED PRN Sodium Chloride 0.9% [Saline Flush] Med 08/25/18 00:16 Active 2.5 ml FLUSH ASDIRECTED PRN oxyCODONE Med 08/25/18 00:15 Active 5 mg PO Q4H PRN Saline Lock Insert [OM.PC] Routine Oth 08/25/18 00:16 Ordered Saline Lock Insert [OM.PC] Stat Oth 08/24/18 21:07 Ordered Resuscitation Status Routine Resus Stat 08/25/18 07:00 Ordered Medication Orders Acetaminophen (Tylenol) 650 mg PO Q6H PRN PRN Reason: Pain Enoxaparin Sodium (Lovenox) 30 mg SUBCUT Q24H [facility] Last Admin: 08/25/18 08:14 Dose: 30 mg Furosemide (Lasix) 20 mg IVPUSH Q6H ASIF Stop: 08/26/18 02:31 Last Admin: 08/25/18 09:18 Dose: 20 mg Oxycodone HCl (Oxycodone) 5 mg PO Q4H PRN PRN Reason: Pain Potassium Chloride (Klor-Con 10) 10 meq PO DAILY [facility] Last Admin: 08/25/18 09:16 Dose: 10 meq Sodium Chloride (Saline Flush) 10 ml FLUSH ASDIRECTED PRN PRN Reason: Keep Vein Open Last Admin: 08/24/18 21:22 Dose: 10 ml Sodium Chloride (Saline Flush) 2.5 ml FLUSH ASDIRECTED PRN PRN Reason: Keep Vein Open Last Admin: 08/24/18 21:22 Dose: 2.5 ml Sodium Chloride (Saline Flush) 10 ml FLUSH ASDIRECTED PRN PRN Reason: Keep Vein Open Sodium Chloride (Saline Flush) 2.5 ml FLUSH ASDIRECTED PRN PRN Reason: Keep Vein Open Assessment/Plan Comment:: A: 1. Acute CHF exacerbation 2. Hx of polysubstance abuse P: 1. Acute CHF exacerbation. Pending Echo results. Fluid restriction, daily weights, strict I/O's. Will start lasix 20 mg IV q12H. 2. Hx of polysubstance abuse- will get urine drug screen. Dispo: 1-2 days. <Aniceto Martinez - Last Filed: 08/25/18 10:19> H&P History of Present Illness - General Admit Problem/Dx: Admission Diagnosis/Problem Admission Diagnosis/Problem Congestive heart failure I have seen and examined to patient independently of internist medical doctor md, Jose Luis Madden MD. I have discussed the case for care of this patient with him. I have reviewed and approve of the plan of care as outlined by internist medical doctor md. Please see orders. Exam - Vital Signs Vital Signs: Last Vital Signs Temp 36.6 C 08/25/18 04:19 Pulse 90 08/25/18 04:19 Resp 18 08/25/18 04:19 BP 105/64 08/25/18 04:19 Pulse Ox 93 L 08/25/18 04:19 - Patient Data Lab Results Last 24 hrs: Laboratory Results - last 24 hr 08/24/18 08/24/18 08/24/18 Range/Units 21:08 21:08 21:08 WBC 10.74 (4.0-11.0) K/uL RBC 4.76 (4.50-5.90) M/uL Hgb 14.1 (13.0-17.0) g/dL Hct 43.5 (38.0-50.0) % MCV 91.4 (80.0-98.0) fL MCH 29.6 (27.0-32.0) pg MCHC 32.4 (31.0-37.0) g/dL RDW Std Deviation 48.2 (28.0-62.0) fl RDW Coeff of Pauline 15 (11.0-15.0) % Plt Count 377 (150-400) K/uL MPV 9.30 (7.40-12.00) fL Neut % (Auto) 60.4 (48.0-80.0) % Lymph % (Auto) 31.7 (16.0-40.0) % [place] % (Auto) 6.2 (0.0-15.0) % Eos % (Auto) 1.0 (0.0-7.0) % Baso % (Auto) 0.7 (0.0-1.5) % Neut # (Auto) 6.5 H (1.4-5.7) K/uL Lymph # (Auto) 3.4 H (0.6-2.4) K/uL [place] # (Auto) 0.7 (0.0-0.8) K/uL Eos # (Auto) 0.1 (0.0-0.7) K/uL Baso # (Auto) 0.1 (0.0-0.1) K/uL Nucleated RBC % 0.0 /100WBC Nucleated RBCs # 0 K/uL INR 1.10 Sodium 137 (136-148) mmol/L Potassium 4.4 (3.5-5.1) mmol/L Chloride 104 (98-107) mmol/L Carbon Dioxide 24.3 (21.0-32.0) mmol/L BUN 22 H (7.0-18.0) mg/dL Creatinine 1.2 (0.8-1.3) mg/dL Est Cr Clr Drug Dosing 85.34 mL/min Estimated GFR (MDRD) > 60.0 ml/min Glucose 94 (74-106) mg/dL Calcium 8.4 L (8.5-10.1) mg/dL Total Bilirubin 1.0 (0.2-1.0) mg/dL AST 27 (15-37) IU/L ALT 39 (14-63) IU/L Alkaline Phosphatase 111 (46-116) U/L Troponin I < 0.050 (0.000-0.056) ng/mL B-Natriuretic Peptide (<100) PG/ML Total Protein 6.8 (6.4-8.2) g/dL Albumin 3.3 L (3.4-5.0) g/dL Globulin 3.5 (2.6-4.0) g/dL Albumin/Globulin Ratio 0.9 (0.9-1.6) 08/24/18 08/25/18 08/25/18 Range/Units 21:08 04:48 04:48 WBC 9.22 (4.0-11.0) K/uL RBC 4.61 (4.50-5.90) M/uL Hgb 13.6 (13.0-17.0) g/dL Hct 41.5 (38.0-50.0) % MCV 90.0 (80.0-98.0) fL MCH 29.5 (27.0-32.0) pg MCHC 32.8 (31.0-37.0) g/dL RDW Std Deviation 47.3 (28.0-62.0) fl RDW Coeff of Pauline 15 (11.0-15.0) % Plt Count 368 (150-400) K/uL MPV 9.50 (7.40-12.00) fL Neut % (Auto) 57.2 (48.0-80.0) % Lymph % (Auto) 35.2 (16.0-40.0) % [place] % (Auto) 6.0 (0.0-15.0) % Eos % (Auto) 0.8 (0.0-7.0) % Baso % (Auto) 0.8 (0.0-1.5) % Neut # (Auto) 5.3 (1.4-5.7) K/uL Lymph # (Auto) 3.3 H (0.6-2.4) K/uL [place] # (Auto) 0.6 (0.0-0.8) K/uL Eos # (Auto) 0.1 (0.0-0.7) K/uL Baso # (Auto) 0.1 (0.0-0.1) K/uL Nucleated RBC % 0.0 /100WBC Nucleated RBCs # 0 K/uL INR Sodium 136 (136-148) mmol/L Potassium 3.8 (3.5-5.1) mmol/L Chloride 102 (98-107) mmol/L Carbon Dioxide 21.5 (21.0-32.0) mmol/L BUN 23 H (7.0-18.0) mg/dL Creatinine 1.1 (0.8-1.3) mg/dL Est Cr Clr Drug Dosing 93.09 mL/min Estimated GFR (MDRD) > 60.0 ml/min Glucose 99 (74-106) mg/dL Calcium 8.4 L (8.5-10.1) mg/dL Total Bilirubin (0.2-1.0) mg/dL AST (15-37) IU/L ALT (14-63) IU/L Alkaline Phosphatase (46-116) U/L Troponin I (0.000-0.056) ng/mL B-Natriuretic Peptide 889 H (<100) PG/ML Total Protein (6.4-8.2) g/dL Albumin (3.4-5.0) g/dL Globulin (2.6-4.0) g/dL Albumin/Globulin Ratio (0.9-1.6) Result Diagrams: 08/25/18 04:48 08/25/18 04:48 Orders Last 24hrs: Active Orders 24 hr Category Date Time Status Patient Status [ADT] Stat ADT 08/24/18 23:08 Active Cardiac Monitoring [RC] CONTINUOUS Care 08/25/18 07:01 Active Daily Weight [Height and Weight] [RC] DAILY Care 08/25/18 08:16 Active Intake and Output Strict [RC] ASDIRECTED Care 08/25/18 08:16 Active Oxygen Therapy [RC] PRN Care 08/25/18 07:00 Active Telemetry Monitoring [Cardiac Monitoring] [RC] Q8H Care 08/25/18 00:17 Active Up ad Emily [RC] ASDIRECTED Care 08/25/18 07:00 Active VTE/DVT Education [RC] PER UNIT ROUTINE Care 08/25/18 07:00 Active Vital Signs [RC] Q4H Care 08/25/18 07:00 Active Fluid Restriction [DIET] Diet 08/25/18 Breakfast Active Regular Diet [DIET] Diet 08/25/18 Breakfast Active Echo Comp wo Cont [US] Routine Exams 08/25/18 07:02 Taken CBC WITH AUTO DIFF [HEME] AM Lab 08/26/18 05:11 Ordered COMPREHENSIVE METABOLIC PN,CMP [CHEM] AM Lab 08/26/18 05:11 Ordered DRUG SCREEN, URINE [URCHEM] Routine Lab 08/25/18 10:00 Received Acetaminophen [Tylenol] Med 08/25/18 00:14 Active 650 mg PO Q6H PRN Enoxaparin [Lovenox] Med 08/25/18 07:00 Active 30 mg SUBCUT Q24H Furosemide [Lasix] Med 08/25/18 10:13 Once 20 mg IVPUSH NOW ONE Furosemide [Lasix] Med 08/25/18 18:00 Ordered 20 mg IVPUSH Q12H Potassium Chloride [Klor-Con 10] Med 08/25/18 09:00 Active 10 meq PO DAILY Sodium Chloride 0.9% [Saline Flush] Med 08/24/18 21:07 Active 10 ml FLUSH ASDIRECTED PRN Sodium Chloride 0.9% [Saline Flush] Med 08/25/18 00:16 Active 10 ml FLUSH ASDIRECTED PRN Sodium Chloride 0.9% [Saline Flush] Med 08/24/18 21:07 Active 2.5 ml FLUSH ASDIRECTED PRN Sodium Chloride 0.9% [Saline Flush] Med 08/25/18 00:16 Active 2.5 ml FLUSH ASDIRECTED PRN oxyCODONE Med 08/25/18 00:15 Active 5 mg PO Q4H PRN Saline Lock Insert [OM.PC] Routine Ot 08/25/18 00:16 Ordered Saline Lock Insert [OM.PC] Stat Ot 08/24/18 21:07 Ordered Resuscitation Status Routine Resus Stat 08/25/18 07:00 Ordered Medication Orders Acetaminophen (Tylenol) 650 mg PO Q6H PRN PRN Reason: Pain Enoxaparin Sodium (Lovenox) 30 mg SUBCUT Q24H [facility] Last Admin: 08/25/18 08:14 Dose: 30 mg Furosemide (Lasix) 20 mg IVPUSH NOW ONE Stop: 08/25/18 10:14 Furosemide (Lasix) 20 mg IVPUSH Q12H ASIF Stop: 08/26/18 18:01 Oxycodone HCl (Oxycodone) 5 mg PO Q4H PRN PRN Reason: Pain Potassium Chloride (Klor-Con 10) 10 meq PO DAILY [facility] Last Admin: 08/25/18 09:16 Dose: 10 meq Sodium Chloride (Saline Flush) 10 ml FLUSH ASDIRECTED PRN PRN Reason: Keep Vein Open Last Admin: 08/24/18 21:22 Dose: 10 ml Sodium Chloride (Saline Flush) 2.5 ml FLUSH ASDIRECTED PRN PRN Reason: Keep Vein Open Last Admin: 08/24/18 21:22 Dose: 2.5 ml Sodium Chloride (Saline Flush) 10 ml FLUSH ASDIRECTED PRN PRN Reason: Keep Vein Open Sodium Chloride (Saline Flush) 2.5 ml FLUSH ASDIRECTED PRN PRN Reason: Keep Vein Open
[2018-08-25] MEDS ORDERED: Furosemide 20 MG/2 ML VIAL IVPUSH ONE (10:13)
[2018-08-25 11:00] LABS: HEMOGLOBIN A1C 5.8 % (4.5-6.2)
[2018-08-25] MEDS: Furosemide 20 MG/2 ML VIAL IVPUSH SCH (18:25)
[2018-08-26 06:11] LABS: CHLORIDE,CL 102 mmol/L (98-107); SODIUM,NA 135 mmol/L (136-148)
[2018-08-26] MEDS: Furosemide 20 MG/2 ML VIAL IVPUSH SCH (06:50)
[2018-08-26] MEDS: Enoxaparin 30 MG/0.3 ML Syringe SUBCUT SCH (06:50)
[2018-08-26] MEDS: Sodium Chloride 0.9% 2.5 ML Syringe FLUSH PRN (06:51)
[2018-08-26] MEDS: Potassium Chloride 10 MEQ Tab.ER PO SCH (09:07)
--- NOTE | 2018-08-26 09:36 | PCM.DCSUM1 ---
<Jose Luis Chi - Last Filed: 08/26/18 09:31> Discharge Summary - Hospital Course Free Text/Narrative:: 38 y/o male with history of HF who states has not been taking his medications for over 1 year. Presented with worsening shortness of breath. Admitted for Acute CHF exacerbation. Initial BNP of 900. He was aggressively diuresed which helped his breathing and edema. ECHO showed EF 20-25% with severe decreased left ventricular systolic function and valvular disease. He was discharged home on Lasix 40 mg PO daily and potassium 20 mEq PO daily. He was instructed to follow-up with cardiology. - Discharge Data Discharge Date: 08/26/18 Discharge Disposition: Home, Self-Care 01 Condition: Good - Patient Instructions Diet: Heart Healthy Diet Fluid Restriction: 2000 mL Activity: As Tolerated Notify Provider of: Fever, Increased Pain, Swelling and Redness, Nausea and/or Vomiting - Discharge Plan *PRESCRIPTION DRUG MONITORING PROGRAM REVIEWED*: Not Applicable *COPY OF PRESCRIPTION DRUG MONITORING REPORT IN PATIENT LILI: Not Applicable Prescriptions/Med Rec: Furosemide [Lasix] 40 mg PO DAILY 30 Days #30 tab Potassium Chloride 20 meq PO DAILY 30 Days #30 tablet.er Home Medications: Home Meds Potassium Chloride [Klor-Con 10] 10 meq PO DAILY #20 tab.er 08/14/18 [Rx] Furosemide [Lasix] 40 mg PO DAILY 30 Days #30 tab 08/26/18 [Rx] Potassium Chloride 20 meq PO DAILY 30 Days #30 tablet.er 08/26/18 [Rx] Patient Handouts: Furosemide tablets, Potassium chloride tablets, extended- release tablets or capsules, Heart Failure, [id number], Form - Daily Weight Record Referrals: Jose Luis Chi MD [Resident] - 08/31/18 3:00 pm Tera Li MD [Physician] - 09/07/18 9:30 am - Discharge Summary/Plan Comment DC Time >30 min.: No - Patient Data Vitals - Most Recent: Last Vital Signs Temp 35.9 C 08/26/18 08:00 Pulse 100 08/26/18 08:00 Resp 16 08/26/18 08:00 BP 117/88 08/26/18 08:00 Pulse Ox 95 08/26/18 08:00 Weight - Most Recent: 100.868 kg I&O - Last 24 hours: Intake & Output 08/25/18 08/26/18 08/26/18 22:59 06:59 14:59 Intake Total 950 400 Output Total 1200 1900 Balance -250 -1500 Lab Results - Last 24 hrs: Laboratory Results - last 24 hr 08/25/18 08/25/18 08/25/18 Range/Units 10:00 10:30 10:30 Sodium (136-148) mmol/L Potassium (3.5-5.1) mmol/L Chloride (98-107) mmol/L Carbon Dioxide (21.0-32.0) mmol/L BUN (7.0-18.0) mg/dL Creatinine (0.8-1.3) mg/dL Est Cr Clr Drug Dosing mL/min Estimated GFR (MDRD) ml/min Glucose (74-106) mg/dL Hemoglobin A1c 5.8 (4.5-6.2) % Calcium (8.5-10.1) mg/dL B-Natriuretic Peptide (<100) PG/ML Triglycerides 104 (0-200) mg/dL Cholesterol 154 (50-200) mg/dL LDL Cholesterol, Calc 99 (60-180) mg/dL VLDL Cholesterol 20 (5-55) mg/dL HDL Cholesterol 34 L (40-60) mg/dL Cholesterol/HDL Ratio 4.5 (3.3-6.0) Urine Opiates Screen NEGATIVE (NEGATIVE) Ur Oxycodone Screen NEGATIVE (NEGATIVE) Urine Methadone Screen NEGATIVE (NEGATIVE) Ur Barbiturates Screen NEGATIVE (NEGATIVE) Ur Phencyclidine Scrn NEGATIVE (NEGATIVE) Ur Amphetamine Screen NEGATIVE (NEGATIVE) U Methamphetamines Scrn NEGATIVE (NEGATIVE) U Benzodiazepines Scrn NEGATIVE (NEGATIVE) U Cocaine Metab Screen NEGATIVE (NEGATIVE) U Marijuana (THC) Screen POSITIVE (NEGATIVE) 08/26/18 08/26/18 Range/Units 05:40 05:40 Sodium 135 L (136-148) mmol/L Potassium 3.6 (3.5-5.1) mmol/L Chloride 102 (98-107) mmol/L Carbon Dioxide 22.9 (21.0-32.0) mmol/L BUN 26 H (7.0-18.0) mg/dL Creatinine 1.2 (0.8-1.3) mg/dL Est Cr Clr Drug Dosing 85.55 mL/min Estimated GFR (MDRD) > 60.0 ml/min Glucose 107 H (74-106) mg/dL Hemoglobin A1c (4.5-6.2) % Calcium 8.5 (8.5-10.1) mg/dL B-Natriuretic Peptide 615 H (<100) PG/ML Triglycerides (0-200) mg/dL Cholesterol (50-200) mg/dL LDL Cholesterol, Calc (60-180) mg/dL VLDL Cholesterol (5-55) mg/dL HDL Cholesterol (40-60) mg/dL Cholesterol/HDL Ratio (3.3-6.0) Urine Opiates Screen (NEGATIVE) Ur Oxycodone Screen (NEGATIVE) Urine Methadone Screen (NEGATIVE) Ur Barbiturates Screen (NEGATIVE) Ur Phencyclidine Scrn (NEGATIVE) Ur Amphetamine Screen (NEGATIVE) U Methamphetamines Scrn (NEGATIVE) U Benzodiazepines Scrn (NEGATIVE) U Cocaine Metab Screen (NEGATIVE) U Marijuana (THC) Screen (NEGATIVE) Med Orders - Current: Current Medications Acetaminophen (Tylenol) 650 mg PO Q6H PRN PRN Reason: Pain Enoxaparin Sodium (Lovenox) 30 mg SUBCUT Q24H [facility] Last Admin: 08/26/18 06:50 Dose: 30 mg Furosemide (Lasix) 20 mg IVPUSH Q12H ASIF Stop: 08/26/18 18:01 Last Admin: 08/26/18 06:50 Dose: 20 mg Oxycodone HCl (Oxycodone) 5 mg PO Q4H PRN PRN Reason: Pain Potassium Chloride (Klor-Con 10) 10 meq PO DAILY [facility] Last Admin: 08/26/18 09:07 Dose: 10 meq Sodium Chloride (Saline Flush) 10 ml FLUSH ASDIRECTED PRN PRN Reason: Keep Vein Open Last Admin: 08/24/18 21:22 Dose: 10 ml Sodium Chloride (Saline Flush) 2.5 ml FLUSH ASDIRECTED PRN PRN Reason: Keep Vein Open Last Admin: 08/26/18 06:51 Dose: 2.5 ml Sodium Chloride (Saline Flush) 10 ml FLUSH ASDIRECTED PRN PRN Reason: Keep Vein Open Sodium Chloride (Saline Flush) 2.5 ml FLUSH ASDIRECTED PRN PRN Reason: Keep Vein Open Discontinued Medications Furosemide (Lasix) 20 mg IVPUSH NOW ONE Stop: 08/24/18 23:07 Last Admin: 08/24/18 23:13 Dose: 20 mg Furosemide (Lasix) 20 mg IVPUSH DAILY ASIF Furosemide (Lasix) 20 mg PO BIDDIURETIC ASIF Last Admin: 08/25/18 08:16 Dose: 20 mg Furosemide (Lasix) 20 mg IVPUSH Q6H ASIF Stop: 08/26/18 02:31 Last Admin: 08/25/18 09:18 Dose: 20 mg Furosemide (Lasix) 20 mg IVPUSH NOW ONE Stop: 08/25/18 10:14 Last Admin: 08/25/18 11:22 Dose: Not Given <MichelleAniceto chandler - Last Filed: 08/26/18 12:26> Discharge Summary - Hospital Course HPI Initial Comments: I have seen and examined to patient independently of medical sales associate, Jose Luis Madden MD. I have discussed the case for care of this patient with him. I have reviewed and approve of the plan of care as outlined by medical sales associate. Please see orders. - Patient Data Vitals - Most Recent: Last Vital Signs Temp 35.9 C 08/26/18 08:00 Pulse 100 08/26/18 08:00 Resp 16 08/26/18 08:00 BP 117/88 08/26/18 08:00 Pulse Ox 95 08/26/18 08:00 I&O - Last 24 hours: Intake & Output 08/25/18 08/26/18 08/26/18 22:59 06:59 14:59 Intake Total 950 400 Output Total 1200 1900 Balance -250 -1500 Lab Results - Last 24 hrs: Laboratory Results - last 24 hr 08/26/18 08/26/18 Range/Units 05:40 05:40 Sodium 135 L (136-148) mmol/L Potassium 3.6 (3.5-5.1) mmol/L Chloride 102 (98-107) mmol/L Carbon Dioxide 22.9 (21.0-32.0) mmol/L BUN 26 H (7.0-18.0) mg/dL Creatinine 1.2 (0.8-1.3) mg/dL Est Cr Clr Drug Dosing 85.55 mL/min Estimated GFR (MDRD) > 60.0 ml/min Glucose 107 H (74-106) mg/dL Calcium 8.5 (8.5-10.1) mg/dL B-Natriuretic Peptide 615 H (<100) PG/ML Med Orders - Current: Current Medications Discontinued Medications Acetaminophen (Tylenol) 650 mg PO Q6H PRN PRN Reason: Pain Enoxaparin Sodium (Lovenox) 30 mg SUBCUT Q24H [facility] Last Admin: 08/26/18 06:50 Dose: 30 mg Furosemide (Lasix) 20 mg IVPUSH NOW ONE Stop: 08/24/18 23:07 Last Admin: 08/24/18 23:13 Dose: 20 mg Furosemide (Lasix) 20 mg IVPUSH DAILY [facility] Furosemide (Lasix) 20 mg PO BIDDIURETIC ASIF Last Admin: 08/25/18 08:16 Dose: 20 mg Furosemide (Lasix) 20 mg IVPUSH Q6H [facility] Stop: 08/26/18 02:31 Last Admin: 08/25/18 09:18 Dose: 20 mg Furosemide (Lasix) 20 mg IVPUSH NOW ONE Stop: 08/25/18 10:14 Last Admin: 08/25/18 11:22 Dose: Not Given Furosemide (Lasix) 20 mg IVPUSH Q12H [facility] Stop: 08/26/18 18:01 Last Admin: 08/26/18 06:50 Dose: 20 mg Oxycodone HCl (Oxycodone) 5 mg PO Q4H PRN PRN Reason: Pain Potassium Chloride (Klor-Con 10) 10 meq PO DAILY [facility] Last Admin: 08/26/18 09:07 Dose: 10 meq Sodium Chloride (Saline Flush) 10 ml FLUSH ASDIRECTED PRN PRN Reason: Keep Vein Open Last Admin: 08/24/18 21:22 Dose: 10 ml Sodium Chloride (Saline Flush) 2.5 ml FLUSH ASDIRECTED PRN PRN Reason: Keep Vein Open Last Admin: 08/26/18 06:51 Dose: 2.5 ml Sodium Chloride (Saline Flush) 10 ml FLUSH ASDIRECTED PRN PRN Reason: Keep Vein Open Sodium Chloride (Saline Flush) 2.5 ml FLUSH ASDIRECTED PRN PRN Reason: Keep Vein Open
== END 2018-08-26 11:00 | disposition home or self-care (01) ==
LOC: MW.ED 20:56 → MW.MS 23:08
PROVIDERS: ADMIT Internal Medicine; ATTEND Internal Medicine
DX: I50.9 Heart failure, unspecified (principal); Z87.891 Personal history of nicotine dependence; Z82.49 Family history of ischemic heart disease and other diseases of the circulatory system; Z79.899 Other long term (current) drug therapy
CPT/HCPCS: 36415; 71045; 71045-26; 80048; 80053; 80061; 80305-QW; 83036; 83880; 84484; 85025; 85610; 93005; 93306; 96372; 96374; 96376; 99284; 99285-25; A9270-GY; G0378; J1650; J1940

== ENCOUNTER 2018-12-01 10:13 | Emergency (ER) | payer MEDICAID, SELFPAY ==
[2018-12-01] MEDS ORDERED: Bacitracin Oint 1 GM U/D Packet TOP ONE (10:28)
--- NOTE | 2018-12-01 10:39 | EDM.PDOC ---
ED HPI GENERAL MEDICAL PROBLEM - General Chief Complaint: Skin Complaint Stated Complaint: RIGHT SWOLLEN LEG Time Seen by Provider: 12/01/18 10:14 Source of Information: Reports: Patient History Limitations: Reports: No Limitations - History of Present Illness INITIAL COMMENTS - FREE TEXT/NARRATIVE: HISTORY AND PHYSICAL: History of present illness: Patient is a 38-year-old male who presents to the emergency room today with complaints of an abscess to the right lateral and anterior right knee. He states a few days ago he noticed an area of irritation and it was slightly reddened any continued to "scratch at it ". Over the past few days he has noticed a white purulent center which he was getting minimal drainage from. States it's painful to palpation. No history of MRSA. Review of systems: As per history of present illness and below otherwise all systems reviewed and negative. Past medical history: As per history of present illness and as reviewed below otherwise noncontributory. Surgical history: As per history of present illness and as reviewed below otherwise noncontributory. Social history: See social history for further information Family history: As per history of present illness and as reviewed below otherwise noncontributory. Physical exam: General: HEENT: Atraumatic, normocephalic, pupils equal and reactive bilaterally, negative for conjunctival pallor or scleral icterus, mucous membranes moist, TMs normal bilaterally, throat clear, neck supple, nontender, trachea midline. No drooling or trismus noted. No meningeal signs. No hot potato voice noted. Lungs: Clear to auscultation, breath sounds equal bilaterally, chest nontender. Heart: S1S2, regular rate and rhythm without overt murmur Abdomen: Soft, nondistended, nontender. Skin: A dime-sized abscess is noted to the mid patella and lateral knee on the right. These are superficial with surrounding erythema. Otherwise skin is intact , warm, dry. No lesions or rashes noted. Extremities: Atraumatic, moves all extremities per self without difficulty or deficits. The abscess does not appear to affect the knee joint or bursa. Neurovascular unremarkable. Neuro: Awake, alert, oriented. Cranial nerves II through XII unremarkable. Cerebellum unremarkable. Motor and sensory unremarkable throughout. Exam nonfocal. Notes: Iodine prep was used. 1% lidocaine was used to anesthetize the area. Superficial puncture wound was made with an 11 blade and able to express minimal amount of purulent drainage to both sites. Bacitracin nonstick dressing was applied. We discussed in great length the need to follow-up with his primary care provider or the orthopedic surgeon. Medication and supportive care measures were reviewed and discussed. Voices understanding and is agreeable to plan of care. Denies any further questions or concerns at this time. Diagnostics: None Therapeutics: Lidocaine, Bacitracin dressing Prescription: Bactrim DS Tylenol #3 (#10) Impression: Abscess Plan: 1. Keep the skin clean and dry. Wash gently twice daily with soap and water. 2. Apply gentle heat as we discussed. Take the antibiotic as directed. 3. Follow-up with your primary care provider or the general surgeon as we discussed. Return to the ED as needed and as discussed. Definitive disposition and diagnosis as appropriate pending reevaluation and review of above. Right Knee Pain Score (Numeric/FACES): 8 - Related Data Allergies Allergy/AdvReac Type Severity Reaction Status Date / Time No Known Allergies Allergy Verified 12/01/18 10:25 Home Meds: Home Meds Acetaminophen with Codeine [Tylenol with Codeine #3 Tablet] 1 each PO Q4HR PRN # 10 tablet 12/01/18 [Rx] Sulfamethoxazole/Trimethoprim [Bactrim Ds Tablet] 1 each PO BID 10 Days #20 tablet 12/01/18 [Rx] Past Medical History HEENT History: Reports: None Cardiovascular History: Reports: Heart Failure Respiratory History: Reports: None Gastrointestinal History: Reports: None Genitourinary History: Reports: None Musculoskeletal History: Reports: None Neurological History: Reports: None Psychiatric History: Reports: None Endocrine/Metabolic History: Reports: None Hematologic History: Reports: None Oncologic (Cancer) History: Reports: None Dermatologic History: Reports: None - Infectious Disease History Infectious Disease History: Reports: Chicken Pox - Past Surgical History Cardiovascular Surgical History: Reports: None Social & Family History - Family History Family Medical History: Noncontributory - Tobacco Use Smoking Status *Q: Current Every Day Smoker Years of Tobacco use: 25 Packs/Tins Daily: 0.5 - Caffeine Use Caffeine Use: Reports: Energy Drinks - Recreational Drug Use Recreational Drug Use: No ED ROS GENERAL - Review of Systems Review Of Systems: ROS reveals no pertinent complaints other than HPI. ED EXAM, SKIN/RASH Exam: See Below (See dictation) Course - Vital Signs Last Recorded V/S: Last Vital Signs Temp 97.1 F 12/01/18 10:23 Pulse 89 12/01/18 10:23 Resp 18 12/01/18 10:23 BP 142/88 H 12/01/18 10:23 Pulse Ox 97 12/01/18 10:23 - Orders/Labs/Meds Meds: Medications Discontinued Medications Generic Name Dose Route Start Last Admin Trade Name Freq PRN Reason Stop Dose Admin Bacitracin 1 dose 12/01/18 10:28 12/01/18 10:48 Bacitracin Oint 1 Gm TOP 12/01/18 10:29 1 dose ONETIME ONE Administration Lidocaine HCl 5 ml 12/01/18 10:27 12/01/18 10:48 Xylocaine-Mpf 1% INJECT 12/01/18 10:28 5 ml ONETIME ONE Administration Departure - Departure Time of Disposition: 10:39 Disposition: Home, Self-Care 01 Clinical Impression: Abscess - Discharge Information Prescriptions: Acetaminophen with Codeine [Tylenol with Codeine #3 Tablet] 1 each PO Q4HR PRN # 10 tablet PRN Reason: Pain Sulfamethoxazole/Trimethoprim [Bactrim Ds Tablet] 1 each PO BID 10 Days #20 tablet Instructions: Skin Abscess Referrals: PCP,Not In Area [Primary Care Provider] - Forms: ED Department Discharge Additional Instructions: The following information is given to patients seen in the emergency department who are being discharged to home. This information is to outline your options for follow-up care. We provide all patients seen in our emergency department with a follow-up referral. The need for follow-up, as well as the timing and circumstances, are variable depending upon the specifics of your emergency department visit. If you don't have a primary care physician on staff, we will provide you with a referral. We always advise you to contact your personal physician following an emergency department visit to inform them of the circumstance of the visit and for follow-up with them and/or the need for any referrals to a consulting specialist. The emergency department will also refer you to a specialist when appropriate. This referral assures that you have the opportunity for follow-up care with a specialist. All of these measure are taken in an effort to provide you with optimal care, which includes your follow-up. Under all circumstances we always encourage you to contact your private physician who remains a resource for coordinating your care. When calling for follow-up care, please make the office aware that this follow-up is from your recent emergency room visit. If for any reason you are refused follow-up, please contact the [facility] Emergency Department at and asked to speak to the emergency department charge nurse. [facility] [address] [place] [id number] [facility] [address] [place] [id number] 1. Keep the skin clean and dry. Wash gently twice daily with soap and water. 2. Apply gentle heat as we discussed. Take the antibiotic as directed. 3. Follow-up with your primary care provider or the general surgeon as we discussed. Return to the ED as needed and as discussed.
== END 2018-12-01 10:54 | disposition home or self-care (01) ==
LOC: MW.ED 10:13
DX: L02.415 Cutaneous abscess of right lower limb (principal); I50.9 Heart failure, unspecified; F17.210 Nicotine dependence, cigarettes, uncomplicated
CPT/HCPCS: 10060; 99282; J2001